=== PATIENT | male | born 1955 | race Caucasian/White ===

== ENCOUNTER 2017-06-20 14:58 | Emergency (ER) | payer OTHER ==
[~2017-06-20] VITALS: Ht 170.2 cm; Wt 80.0 kg
[2017-06-20 15:00] VITALS: Ht 170.2 cm; Wt 80.0 kg
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
[2017-06-20] MEDS ORDERED: ACET500C5 PO (16:45)
[2017-06-20] MEDS ORDERED: ACETAMINOPHEN 325 MG TAB PO ONE (17:00)
== END 2017-06-20 16:50 | disposition home or self-care (01) ==
LOC: FTE 14:58
DX: M25.512 Pain in left shoulder (principal); J44.9 Chronic obstructive pulmonary disease, unspecified; J45.909 Unspecified asthma, uncomplicated; R51 Headache
CPT/HCPCS: 70450; 72125; 73030; Z7502; Z7610

== ENCOUNTER → 2018-05-13 | Outpatient (CLI) | END | disposition home or self-care (01) ==